=== PATIENT | female | born 1965 | race Caucasian/White ===

== ENCOUNTER → 2016-12-02 | Outpatient (CLI) | payer OTHER ==
--- NOTE | 2016-12-02 18:25 | MAM ---
History: Well woman exam. Date of exam: 12/02/2016 Services provided: Bilateral full field digital screening mammography. CAD, the images were reviewed with R2 computer aided detection. FINDINGS: Glandular tissue is scattered glandular contour. Comparison with 2012 exam. Increased mammographic density. No dominant mass, architectural distortion or clustered microcalcification. IMPRESSION: Benign exam Recommendation: Routine annual mammography BIRAD CATEGORY: 2 BENIGN Electronically signed by: Yanique Rios MD 12/02/2016 6:24 PM CDT Workstation: [id number]
== END ==
LOC: MAMMO 15:51
PROVIDERS: ATTEND Obstetrics & Gynecology
DX: Z12.31 Encounter for screening mammogram for malignant neoplasm of breast (principal)

== ENCOUNTER → 2018-01-05 | Outpatient (CLI) | payer OTHER ==
--- NOTE | 2018-01-05 16:47 | MAM ---
EXAM DESCRIPTION: 3D Screening BILATERAL : Digital Mammography. CLINICAL HISTORY: 52 years Female SCREENING . No complaints. No family history of breast cancer. Postmenopausal. Childbirth. No HRT. COMPARISON: 2-D digital screening bilateral study 12/02/2016. Report from prior examination also reviewed. TECHNIQUE: Bilateral CC and MLO projection full-field images, 3-D tomosynthesis digital mammographic technique. CAD not utilized. FINDINGS: The breast parenchymal density pattern is: Scattered areas of fibroglandular density. No skin thickening or nipple retraction. Bilateral axillary lymph nodes. Lymph node in the right axillary tail. No new focal, stellate mass or density, focal asymmetry , and no suspicious microcalcifications #. Stable mammograms compared to prior study, taking into account differences in mammographic technique. IMPRESSION: BI-RADS CATEGORY: 2 - BENIGN FINDINGS. FOLLOW UP: Routine digital bilateral screening, one year interval from December 2017. Written communication explaining the IMPRESSION and follow-up, will be mailed to the patient and referring health care provider. According to the [employer], yearly mammograms are recommended starting at age 40 and continuing as long as a woman is in good health. Any breast change noted on a breast self-exam should be reported promptly to the patient's healthcare provider. Breast MRI is recommended for women with an approximately 20-25% or greater lifetime risk of breast cancer, including women with a strong family history of breast or ovarian cancer and women who have been treated for Hodgkin's disease. A negative mammographic report should not delay tissue diagnosis in patients with significant clinical history or physical findings. Extremely dense breast tissue limits the sensitivity of digital mammography. Electronically signed by: Jose Fitzgerald MD 01/05/2018 4:46 PM CDT
== END ==
LOC: MAMMO 11:00
PROVIDERS: ATTEND Obstetrics & Gynecology
DX: Z12.31 Encounter for screening mammogram for malignant neoplasm of breast (principal)

== ENCOUNTER → 2019-03-09 | Outpatient (CLI) | payer OTHER ==
--- NOTE | 2019-03-11 20:58 | MAM ---
EXAM DESCRIPTION: 3D Screening BILATERAL : Digital Mammography. CLINICAL HISTORY: 53 years Female SCREENING . No complaints. No personal or family history of breast cancer. Menarche age 11. Childbirth. Postmenopausal 3+ years. Currently on HRT. Lifetime risk of developing breast cancer (Tyrer-Cuzick model)(%): 7.5. COMPARISON: Bilateral screening digital breast tomosynthesis 01/05/2018 and 12/02/2016. TECHNIQUE: Bilateral CC and MLO projection full-field images, digital tomosynthesis mammographic technique. Bilateral digital 2-D full-field MLO images. CAD not available for tomosynthesis or 2-D images. FINDINGS: The breast parenchymal density pattern is: Scattered areas of fibroglandular density. No skin thickening or nipple retraction. Bilateral solitary microcalcifications. Bilateral skin moles indicated by skin markers. Intramammary lymph nodes on the right. No new focal, stellate mass or density, focal asymmetry , and no suspicious microcalcifications bilaterally. Stable mammograms compared to prior study. IMPRESSION: Benign exam. BIRAD CATEGORY: 2 BENIGN FINDINGS. RECOMMENDATIONS: FOLLOW UP: Routine digital bilateral mammographic screening, one year interval from March 2019. Written communication explaining the IMPRESSION and follow-up, will be mailed to the patient and referring health care provider. According to the [employer], yearly mammograms are recommended starting at age 40 and continuing as long as a woman is in good health. Any breast change noted on a breast self-exam should be reported promptly to the patient's healthcare provider. Breast MRI is recommended for women with an approximately 20-25% or greater lifetime risk of breast cancer, including women with a strong family history of breast or ovarian cancer and women who have been treated for Hodgkin's disease. A negative mammographic report should not delay tissue diagnosis in patients with significant clinical history or physical findings. Extremely dense breast tissue limits the sensitivity of digital mammography. Electronically signed by: Jose Fitzgerald MD 03/11/2019 8:57 PM CDT
== END ==
LOC: MAMMO 10:00
PROVIDERS: ATTEND Obstetrics & Gynecology
DX: Z12.31 Encounter for screening mammogram for malignant neoplasm of breast (principal)

== ENCOUNTER → 2019-04-16 | Outpatient (CLI) | payer OTHER ==
--- NOTE | 2019-04-16 12:02 | RAD ---
EXAM DESCRIPTION: Fingers,Right (accession [id number]), Hand,Right 3 Views (accession [id number]) CLINICAL HISTORY: 53 years Female, PAIN COMPARISON: None. Findings: Three views/x-rays of the right hand, two views/x-rays of the right thumb Right hand: Possible nondisplaced fracture of the middle phalanx base. No other fracture identified. No dislocation. Joint spaces are preserved. No focal soft tissue swelling. Right thumb: No fracture identified. No dislocation. Joint spaces are preserved. No focal soft tissue swelling. IMPRESSION: Possible nondisplaced fracture of the third digit middle phalanx base. Electronically signed by: Ravi Gupta MD 04/16/2019 12:00 PM [facility]
--- NOTE | 2019-04-16 12:02 | RAD ---
EXAM DESCRIPTION: Fingers,Right (accession [id number]), Hand,Right 3 Views (accession [id number]) CLINICAL HISTORY: 53 years Female, PAIN COMPARISON: None. Findings: Three views/x-rays of the right hand, two views/x-rays of the right thumb Right hand: Possible nondisplaced fracture of the middle phalanx base. No other fracture identified. No dislocation. Joint spaces are preserved. No focal soft tissue swelling. Right thumb: No fracture identified. No dislocation. Joint spaces are preserved. No focal soft tissue swelling. IMPRESSION: Possible nondisplaced fracture of the third digit middle phalanx base. Electronically signed by: Ravi Gupta MD 04/16/2019 12:00 PM [facility]
== END ==
LOC: RAD 09:30
PROVIDERS: ATTEND Orthopaedic Surgery
DX: M79.644 Pain in right finger(s) (principal); M79.641 Pain in right hand

== ENCOUNTER → 2019-12-13 | Outpatient (CLI) | payer OTHER | LOC: LAB.O 14:03 | PROVIDERS: ATTEND Orthopaedic Surgery | DX: Z01.818 Encounter for other preprocedural examination (principal) ==

== ENCOUNTER 2019-12-29 06:10 | Day surgery (SDC) | payer OTHER ==
[~2019-12-29 06:10] MED LIST: LACTATED RINGERS 1,000 ML ONE; SODIUM CHL 0.9% 100ML MINI-BAG 100 ML IVPB ONE; SODIUM CHLORIDE 0.9% (FLUSH) 10 ML SYG ONE; ceFAZolin SODIUM 1 GM VIAL ONE
[2019-12-29] MEDS ORDERED: LIDOCAINE 1% 10 ML VIAL INJ ONE ×2 (06:44→07:00)
[2019-12-29] MEDS ORDERED: VANCOMYCIN HCL INJ 1,000 MG VIAL IVPB ONE (06:44)
[2019-12-29] MEDS ORDERED: BUPIVACAINE 0.25% INJ 30 ML VIAL INJ ONE (06:44)
[2019-12-29] MEDS ORDERED: ceFAZolin SODIUM 1 GM VIAL ONE (06:44)
[2019-12-29] MEDS ORDERED: PROPOFOL 200 MG/20 ML VIAL IV ONE (07:00)
[2019-12-29] MEDS ORDERED: fentaNYL CITRATE INJ 50 MCG/ML AMP ONE (08:56)
[2019-12-29 10:30] VITALS: BP 122/86; TEMP 98; O2SAT 97
--- NOTE | 2020-01-11 09:42 | OP ---
DATE OF PROCEDURE: 12/29/19 PREOPERATIVE DIAGNOSIS: 1. Right trigger thumb. POSTOPERATIVE DIAGNOSIS: 1. Right trigger thumb. PROCEDURE: 1. Trigger thumb release. SURGEON: Jamin Paulino MD. SOFTWARE PRODUCT MANAGER: Jose Vigil CST, SA-C. ANESTHESIA: Local with sedation. COMPLICATIONS: None. FINDINGS: Triggering at the A1 da of the thumb. INDICATION: Ms. Tovar has a history of severe pain associated with triggering at the thumb. She has requested operative intervention. After discussing the risks, benefits and alternatives to operative therapy, the patient has given informed consent for trigger thumb release. PROCEDURE: The patient was brought to the Operating Room and placed in the supine position. Sedation was administered and local anesthetic was injected into the operative area. Following injection, the arm was sterilely prepped and draped. A transverse incision was made directly overlying the A1 da of the triggering digit and blunt dissection was carried down to the da while protecting the digital nerves. After identification of the da, the da was transected and a [place] elevator was passed both proximally and distally to ensure complete release. The finger was flexed and extended and there was no evidence of locking or clicking. The wound was thoroughly irrigated and closed with Nylon suture. A sterile dressing was placed and the patient was taken to the Day Surgery Unit. POSTOPERATIVE PLAN: The patient has been encouraged to do range of motion of the digits and will followup with us in two days. #[id number] [facility]
== END 2019-12-29 10:15 | disposition home or self-care (01) ==
LOC: AMB 06:10
PROVIDERS: ATTEND Orthopaedic Surgery
DX: M65.311 Trigger thumb, right thumb (principal); E11.9 Type 2 diabetes mellitus without complications; F32.9 Major depressive disorder, single episode, unspecified; I10 Essential (primary) hypertension; E07.9 Disorder of thyroid, unspecified; Z79.899 Other long term (current) drug therapy; Z79.84 Long term (current) use of oral hypoglycemic drugs
CPT/HCPCS: 01810; 26055; 36416; 80307; 82948; A4216; J0690; J3370; J3490; J7050; J7120